=== PATIENT | female | born 1985 | race Caucasian/White ===

== ENCOUNTER 2017-02-04 15:55 | Emergency (ER) | payer OTHER ==
[2017-02-04 16:00] VITALS: TEMP 97.6
--- NOTE | 2017-02-04 16:27 | C.PDOC ---
History Of Present Illness 31 year old female presents to ED with complaints of left shoulder pain since yesterday. She report cleaning her home and rearranging things yesterday, but denies any fall or direct injury. She applied icy hot to the area with minimal relief. Pain is dull aching and nonradiating. Time Seen by Provider: 02/04/17 16:04 Chief Complaint (Nursing): Upper Extremity Problem/Injury History Per: Patient History/Exam Limitations: no limitations Onset/Duration Of Symptoms: Hrs Current Symptoms Are (Timing): Still Present Quality: Aching, "Pain" Exacerbating Factor(s): Strenuous Use Of Affected Area, Movement Past Medical History Reviewed: Historical Data, Nursing Documentation, Vital Signs Vital Signs: Last Vital Signs Temp 97.6 F 02/04/17 15:58 Pulse 95 H 02/04/17 15:58 Resp 20 02/04/17 15:58 BP 135/84 02/04/17 15:58 Pulse Ox 100 02/04/17 15:58 - Medical History PMH: No Chronic Diseases Surgical History: Cholecystectomy Family History: States: Unknown Family Hx - Social History Hx Tobacco Use: No Hx Alcohol Use: No Hx Substance Use: No - Immunization History Hx Tetanus Toxoid Vaccination: No Hx Influenza Vaccination: No Hx Pneumococcal Vaccination: (unk) Review Of Systems Constitutional: Negative for: Fever, Weakness Cardiovascular: Negative for: Chest Pain, Palpitations Respiratory: Negative for: Cough, Shortness of Breath Gastrointestinal: Negative for: Abdominal Pain Musculoskeletal: Positive for: Shoulder Pain Skin: Negative for: Rash Neurological: Negative for: Weakness, Numbness, Headache Physical Exam - Physical Exam Appears: Non-toxic, No Acute Distress Skin: Warm, Dry, No Rash, No Ecchymosis Head: Atraumatic, Normacephalic Eye(s): bilateral: Normal Inspection, EOMI Neck: Normal ROM, No Midline Cervical Tenderness, No Paracervical Tenderness Chest: Symmetrical Cardiovascular: Rhythm Regular, No Murmur Respiratory: Normal Breath Sounds, No Wheezing Extremity: Normal ROM, No Deformity, No Swelling, Other (Left shoulder with mild tenderness to lateral aspect, no AC joint or clavicular tenderness; pain with abduction above 90degrees; no swelling; no deformity.) Pulses: Left Radial: Normal Neurological/Psych: Oriented x3, Normal Speech, Normal Motor, Normal Sensation Gait: Steady ED Course And Treatment O2 Sat by Pulse Oximetry: 100 Medical Decision Making Medical Decision Making: Patient with left shoulder pain for one day. Exam reveals muscular tenderness and no bony deformity or signs of dislocation or fracture. XRay not indicated based on history and exam findings. Patient treated with Toradol IM. On re- evaluation, she reports pain is improving. Recommends analgesics as needed. IF pain persists for one week can return or follow up outpatient for re-eval. Disposition Counseled Patient/Family Regarding: Diagnosis, Need For Followup, Rx Given - Disposition Referrals: oShail Esquivel MD [Staff Provider] - Disposition: HOME/ ROUTINE Disposition Time: 16:26 Condition: GOOD Additional Instructions: Por favor aplique hielo en el moises 15 minutos lorraine veces al da. [place] Motrin cuando sea necesario para el dolor cada 6 horas, con alimentos para no alterar el estmago. Nataliia un seguimiento con ortopedia si el dolor persiste obdulia hernandez semana. Prescriptions: Ibuprofen [Motrin] 600 mg PO Q8 #30 tab Instructions: Shoulder Sprain (ED) Forms: [facility] (Turkish) Print Language: SAMI - POA Present On Arrival: None - Clinical Impression Clinical Impression: Shoulder sprain
[2017-02-04 17:02] VITALS: BP 122/74; PULSE 82; RESP 18
[2017-02-04 17:16] VITALS: O2SAT 100
== END 2017-02-04 17:02 | disposition home or self-care (01) ==
LOC: C.ER 15:55
DX: S43.402A Unspecified sprain of left shoulder joint, initial encounter (principal); X50.9XXA Other and unspecified overexertion or strenuous movements or postures, initial encounter; Y93.E9 Activity, other interior property and clothing maintenance; Y92.008 Other place in unspecified non-institutional (private) residence as the place of occurrence of the external cause
CPT/HCPCS: 96372; 99284; J1885